=== PATIENT | female | born 1965 | race Caucasian/White ===

== ENCOUNTER 2021-10-07 09:03 | Emergency (ER) | payer SELFPAY ==
[~2021-10-07] VITALS: Ht 157.5 cm; Wt 86.7 kg
[~2021-10-07 09:03] MED LIST: JOLESSA PO
[2021-10-07 10:00] VITALS: BP 127/76
[2021-10-07 10:32] VITALS: BP 136/66
[2021-10-07 10:51] VITALS: BP 136/66
== END 2021-10-07 10:51 | disposition home or self-care (01) | DRG 563 ==
LOC: ED 09:03
PROC: 2W3RX1Z Immobilization of Left Lower Leg using Splint (ICD-10-PCS; principal; 2021-10-07)
DX: S82.62XA Displaced fracture of lateral malleolus of left fibula, initial encounter for closed fracture (principal); W19.XXXA Unspecified fall, initial encounter